=== PATIENT | male | born 1955 | race Caucasian/White ===

== ENCOUNTER 2024-06-18 14:42 | Emergency (ER) | payer OTHER, MEDICARE ==
[2024-06-18 15:12] VITALS: BP 137/90; PULSE 83; RESP 18; TEMP 98.4; BMI 22.4
[2024-06-18 15:29] LABS: ABSOLUTE IMMATURE GRANULOCYTES 0.02 x10^3/uL (0.0-0.031); BASOPHILS # 0.05 x10^3/uL (0.01-0.08); EOSINOPHIL % 0.2 % (0.8-7.0); EOSINOPHILS # 0.03 x10^3/uL (0.04-0.54); HEMATOCRIT 43.9 % (40.1-51.0); HEMOGLOBIN 15.3 g/dL (13.7-17.5); MCHC 34.9 g/dl (32.3-36.5); MONOCYTE # 0.66 x10^3/uL (0.30-0.82); MONOCYTE % 5.2 % (5.3-12.2); PLATELET COUNT 249 x10^3/uL (163-337); RDW 12.1 % (12.2-16.4)
[2024-06-18 15:57] LABS: ALK PHOS 69 U/L (45-117); ANION GAP 11 mmol/L (4-13); CALCIUM 10.2 mg/dl (8.5-10.1); CHLORIDE 100 mmol/L (98-107); CO2 25 mmol/L (21-32); CREATININE 0.8 mg/dl (0.6-1.3); GLUCOSE,RANDOM 107 mg/dl (74-106); POTASSIUM 4.6 mmol/L (3.5-5.1); SGOT/AST 20 U/L (15-37); SGPT/ALT 15 U/L (7-52); SODIUM 136 mmol/L (136-145); TOT PROT 7.5 g/dl (6.4-8.2)
[2024-06-18] MEDS ORDERED: ALBUTEROL SO4 2.5/IPRATROPIUM 0.5 INH SOL 3 ML VIAL.NEB. NEB ONE (16:41)
[2024-06-18] MEDS: ALBUTEROL SO4 2.5/IPRATROPIUM 0.5 INH SOL 3 ML VIAL.NEB. NEB ONE (16:45)
== END 2024-06-18 18:09 | disposition home or self-care (01) ==
LOC: FER 14:42
PROC: 3E0F7GC Introduction of Other Therapeutic Substance into Respiratory Tract, Via Natural or Artificial Opening (ICD-10-PCS; principal; 2024-06-18)
DX: R42 Dizziness and giddiness (principal); J02.9 Acute pharyngitis, unspecified
CPT/HCPCS: 0241U-QW; 36415; 71046-TC-FY; 80053; 81003; 84484; 85025; 87086; 99285-25